=== PATIENT | female | born 1960 | race Caucasian/White ===

== ENCOUNTER → 2017-01-28 | Outpatient (CLI) | payer BC ==
[2017-01-28 11:47] LABS: BLOOD UREA NITROGEN 13 mg/dL (7-22); BUN/CREATININE RATIO 18.57 (6-20); CALCIUM 9.4 mg/dL (8.7-10.7); CHOL/HDL RATIO 3.16 RATIO (0-4.0); EST GLOMERULAR FILTRATION > 60 (>60 ml/min/1.73m(2)); HDL CHOLESTEROL 66 mg/dL (40-150); SERUM CHOLESTEROL 209 mg/dL (120-200)
[2017-01-29 04:52] LABS: VITAMIN D 25-HYDROXY 43.4 NG/ML (30-100)
== END ==
LOC: LAB 11:03
PROVIDERS: ATTEND Surgery
DX: K91.2 Postsurgical malabsorption, not elsewhere classified (principal); E53.8 Deficiency of other specified B group vitamins; E55.9 Vitamin D deficiency, unspecified; E56.9 Vitamin deficiency, unspecified; E66.01 Morbid (severe) obesity due to excess calories; E61.1 Iron deficiency; Z98.84 Bariatric surgery status
CPT/HCPCS: 36415; 80053; 80061; 82306; 82746